=== PATIENT | male | born 1990 | race Caucasian/White ===

== ENCOUNTER 2017-10-20 10:41 | Emergency (ER) | payer OTHER ==
[2017-10-20 11:19] VITALS: O2SAT 98
--- NOTE | 2017-10-20 11:48 | C.PDOC ---
History Of Present Illness 27 y/o male presents to ED status post falling from stairs last night and having nose bleed with associated loc. Patient states he tripped and fell down the stairs hitting his nose and began to bleed. Patient states bleeding resolved but still feels pain to area and is requesting nose xray. Patient denies current nos e bleed, head injury or any other complaints at this time. Chief Complaint (Nursing): ENT Problem History Per: Patient History/Exam Limitations: None Onset/Duration Of Symptoms: Days Current Symptoms Are (Timing): Still Present Quality (Ear): Pain W/Touch Past Medical History Reviewed: Historical Data, Nursing Documentation, Vital Signs Vital Signs: Last Vital Signs Temp 97.9 F 10/20/17 13:45 Pulse 58 L 10/20/17 13:45 Resp 16 10/20/17 13:45 BP 128/72 10/20/17 13:45 Pulse Ox 98 10/20/17 13:45 - Medical History PMH: No Chronic Diseases Surgical History: No Surg Hx Family History: States: No Known Family Hx - Social History Hx Tobacco Use: No Hx Alcohol Use: No Hx Substance Use: No - Immunization History Hx Tetanus Toxoid Vaccination: No Hx Influenza Vaccination: No Hx Pneumococcal Vaccination: No Review Of Systems Constitutional: Negative for: Fever, Chills ENT: Positive for: Nose Pain. Negative for: Nose Discharge Respiratory: Negative for: Shortness of Breath Gastrointestinal: Negative for: Nausea, Vomiting Skin: Negative for: Rash Physical Exam - Physical Exam Appears: Non-toxic, No Acute Distress Skin: Warm, Dry, No Rash Head: Normacephalic Eye(s): bilateral: Normal Inspection Ear(s): Bilateral: Normal Nose: No Epistaxis, No Deformity, Tenderness, Other (Mild subtissue at base of nose) Oral Mucosa: Moist Throat: Normal, No Erythema, No Exudate Neck: Supple Chest: Symmetrical Neurological/Psych: Oriented x3 Gait: Steady ED Course And Treatment O2 Sat by Pulse Oximetry: 98 (RA) Pulse Ox Interpretation: Normal Medical Decision Making Medical Decision Making: Impression: Nose pain Plan: Patient requested xray to r/o fracture Patient offered pain medication but refused Progress: Xray showed nose fracture Disposition - Disposition Referrals: Cleveland Branch MD [Staff Provider] - Disposition: HOME/ ROUTINE Disposition Time: 14:55 Condition: GOOD Prescriptions: oxyCODONE/Acetaminophen [Percocet 5/325 mg Tab] 1 ea PO TID PRN #12 tab PRN Reason: Pain, Mild (1-3) Instructions: Nasal Fracture (ED) Forms: [facility] (Slovenian) Print Language: MOHAWK - Clinical Impression Clinical Impression: Nasal fracture - Scribe Statement The provider has reviewed the documentation as recorded by the Geovanyiblisha Gill All medical record entries made by the Geovanyiblisha were at my direction and personally dictated by me. I have reviewed the chart and agree that the record accurately reflects my personal performance of the history, physical exam, medical decision making, and the department course for this patient. I have also personally directed, reviewed, and agree with the discharge instructions and disposition.
--- NOTE | 2017-10-20 13:03 | RAD ---
PROCEDURE: Radiographs of Nasal Bones HISTORY: trauma COMPARISON: None available. TECHNIQUE: Frontal and lateral radiographs of the nasal bones. FINDINGS: Suspect bilateral nasal bone fracture deformities. Limited visualized paranasal sinuses and mastoid air cells appear grossly clear. IMPRESSION: Suspected bilateral nasal bone fracture deformities. Correlate clinically. Suggest facial bones CT for further evaluation if indicated.
[2017-10-20 14:22] VITALS: BP 128/72; PULSE 58; RESP 16; TEMP 97.9
== END 2017-10-20 13:45 | disposition home or self-care (01) ==
LOC: C.ER 10:41
DX: S02.2XXA Fracture of nasal bones, initial encounter for closed fracture (principal); W10.9XXA Fall (on) (from) unspecified stairs and steps, initial encounter; Y92.239 Unspecified place in hospital as the place of occurrence of the external cause